=== PATIENT | male | born 1985 | race Caucasian/White ===

== ENCOUNTER 2018-11-11 11:13 | Emergency (ER) | payer OTHER, MEDICAID, SELFPAY ==
[2018-11-11 11:19] VITALS: BP 154/104; PULSE 89; RESP 16; TEMP 36.7; O2SAT 100; BMI 25.4
--- NOTE | 2018-11-11 11:34 | DI.RAD.S_ITS ---
PROCEDURE: XR FINGER RT MIN 2V INDICATIONS: finger jammed in engine, pain with ROM TECHNIQUE: AP hand, 2 views of the 5th finger(s) acquired. COMPARISON: None. FINDINGS: Bones: No fractures or dislocations. There is mild flexion deformity of the fifth finger at proximal interphalangeal joint. No suspicious bony lesions. Soft tissues: No suspicious soft tissue calcifications. IMPRESSION: No fracture dislocation. Flexion deformity of the fifth finger, which could be related to ligamentous injury. Dictated by: Franc Castañeda M.D. on 11/11/2018 at 11:52 Approved by: Franc Castañeda M.D. on 11/11/2018 at 11:54
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
[2018-11-11] MEDS: KETOROLAC 60 MG/2 ML VIAL IM (12:30)
[2018-11-11] MEDS: ACETAMINOPHEN 325 MG TABLET 650 MG PO (12:31)
[2018-11-11] MEDS: BACITRACIN OINT 0.9 GM PCKT 1 APPLIC TOP (13:37)
[2018-11-11 13:38] VITALS: BP 130/87; PULSE 63; RESP 14; O2SAT 100
== END 2018-11-11 13:40 | disposition home or self-care (01) ==
PROVIDERS: Emergency Provider Internal Medicine; PCP Nurse Practitioner Family
DX: T23.401A Corrosion of unspecified degree of right hand, unspecified site, initial encounter (principal); T21.41XA Corrosion of unspecified degree of chest wall, initial encounter; X12.XXXA Contact with other hot fluids, initial encounter
CPT/HCPCS: 29130; 73140; 96372; 99282; 99283; J1885

== ENCOUNTER 2019-06-29 08:07 | Emergency (ER) | payer OTHER, MEDICAID, SELFPAY ==
[2019-06-29 08:18] VITALS: BP 136/73; PULSE 73; RESP 12; TEMP 36.9; O2SAT 98
--- NOTE | 2019-06-29 08:28 | PC.NURSE ---
Seen in [place] in January and almost went to surgery for appy. Surgeon then concluded it was not his appendix. Has been having ongoing lower abd pain since January.
[2019-06-29 08:40] LABS: Add Manual Diff / Slide Review NO; Basophils Absolute Auto 0 /uL (0-100); Basophils Percent Auto 0.5 % (0-2); Eosinophils Absolute Auto 0 /uL (0-450); Eosinophils Percent Auto 0.4 % (2-4); Hematocrit 46.4 % (41-53); Hemoglobin 16.5 g/dL (13.5-17.5); Lymphocytes Absolute Auto 1100 /uL (1100-4500); Mean Corpuscular HGB Conc 35.7 % (30-36); Mean Corpuscular Hemoglobin 32.6 PG (26-34); Mean Corpuscular Volume 91.3 fL (80-100); Monocytes Absolute Auto 400 /uL (0-900); Monocytes Percent Auto 7.2 % (3-14); Neutrophils Absolute Auto 3500 /uL (1500-7000); Neutrophils Percent Auto 69.9 % (50-75); Platelet Count 230 X10^3/uL (150-400); Red Blood Cell Count 5.08 X10^6/uL (4.5-5.9); Red Cell Distribution Width 13.3 % (11.6-14.8); White Blood Cell Count 5.1 X10^3/uL (4.5-11.0)
--- NOTE | 2019-06-29 08:45 | ED.ABDPAIN ---
HPI - Abdominal Pain General Chief Complaint: Abdominal Pain Stated Complaint: Severe lower left stomach pain Time Seen by Provider: 06/29/19 08:33 Source: patient Mode of arrival: Ambulatory History of Present Illness HPI narrative: CC: LLQ abdominal Pain HPI: The patient is a 33-year-old male who presents to the emergency department with left lower quadrant abdominal pain. The patient states that he has had abdominal pain chronically since mid January. He has a history of indigestion heartburn and peptic ulcer disease. He has been having indigestion and heartburn. But last night he developed pain in the left upper quadrant and left lower quadrant. He denies a history of diverticulitis. He has been told that he may have a history of Crohn's disease and irritable bowel syndrome. He has alternating periods of constipation with diarrhea. He has had no melena or hematochezia. He has been vomiting all night unable to keep anything down. He did have an episode of coffee-ground emesis according to his girlfriend but no vomiting of blood. He complains of pain and discomfort in his epigastrium left upper quadrant but mostly in the left lower quadrant. The pain is a dull achy crampy pain that initially was 7 to 8/10 in intensity and is now 5-6 over 10 in intensity. He has been in rehab for her chronic alcohol list some. He denies that he has been drinking any alcohol. He is trying to stop smoking cigarettes. And periodically his smoke marijuana but does not use methamphetamine or heroin. He has had no surgery on his belly but has had a questionable history of gastritis and peptic ulcer disease. He denies having his appendix or gallbladder removed . He denies a history of diabetes mellitus hypertension but admits to a history of asthma and has had a questionable history of pancreatitis. He denies being tested for Covid, or being exposed to Covid. Related Data Previous Rx's Medication Instructions Recorded cephalexin [Keflex] 500 mg PO QID #28 cap 06/29/19 ondansetron HCl [Zofran] 4 mg PO Q6H PRN #12 tab 06/29/19 pantoprazole 40 mg PO DAILY #20 tab 06/29/19 Allergies Allergy/AdvReac Type Severity Reaction Status Date / Time ibuprofen Allergy Unknown ELEVATED Verified 06/29/19 08:22 HR, SWEATS Review of Systems Review of Systems Narrative: REVIEW OF SYSTEMS: CONSTITUTIONAL: He denies any fever or chills at this time. He had chills and sweats while he was vomiting all night. NEUROLOGICAL: Denies any headache numbness tingling paresthesias in his seizures or paresis. He has had no change in vision EENT: No sore throat dysphagia or sinus congestion. CARDIO-PULMONARY: Denies any chest pain cough shortness of breath or difficulty in breathing GASTROINTESTINAL: Has been unable to keep anything down has been vomiting all night. Has had questionable coffee-ground emesis. He has had intermittent diarrhea diarrhea at the present time. DERMATOLOGICAL: No bruising bleeding or rash. MUSCULOSKELETAL: No back pain muscle aches or joint pain GENITALURINARY: Has a slow urinary stream. No dysuria pyuria hematuria. MENTAL HEALTH: States he is in treatment alcohol rehab. Patient History Medical History Asthma (Chronic) Surgical History No history of previous surgery (Chronic) Social History Smoking Status: Current every day smoker Smoking Status: Current every day smoker alcohol intake frequency: a few times a week Substance Use Type: marijuana Exam Narrative Exam Narrative: PHYSICAL EXAM: CONSTITUTIONAL: Awake, Alert, Oriented, Coherent, Cooperative in NAD. Does not appear toxic or ill. The patient is ambulatory arm walking to the bathroom multiple times holding his abdomen. HEAD: AT/NC EENT: PERRL, FROM of eyes, no discharge, no nystagmus MOUTH: Wearing a mask NECK: Supple, no obvious JVD, Trachea is midline without stridor, no palpable LN. SPINE: Palpationof the cervical, Thoracic, Lumbar or Sacral spine reveals no gross deformity or tenderness. No CVA tenderness. THORAX: No deformity, retractions, chest wall tenderness. LUNGS: Clear, symmetrical breath sounds without respiratory distress. HEART: Normal heart tones, regular rhythm and rate without murmur. ABDOMEN: Soft tender in the epigastrium left upper quadrant and left lower quadrant with mild guarding no rebound no rigidity no palpable organomegaly. LYMPHATIC: no palpable lymph nodes or spleen. EXTREMITIES: No edema, deformity, tenderness or cyanosis. SKIN: No rash, bruising, petechiae or purpura. NEURO: Awake, alert, oriented, conversive, cranial nerves II-XII are symmetrical , moves all 4 extremities and is ambulatory. MENTAL HEALTH: No depression Initial Vital Signs Initial Vital Signs: Vital Signs Temperature 98.5 F 06/29/19 08:18 Pulse Rate 73 06/29/19 08:18 Respiratory Rate 12 06/29/19 08:18 Blood Pressure 136/73 06/29/19 08:18 Pulse Oximetry 98 06/29/19 08:18 Course Course Course Narrative: 1141: The patient's CT scan reveals: 1. Small hiatal hernia. No bowel obstruction. No abnormal bowel wall thickening. No free air. Normal appendix. 2. No renal stone or hydronephrosis. 3. Numerous tiny hypodensities scattered in the upper portion of the liver parenchyma which may may represent hepatic cysts. The patient may have a urinary tract infection. Orders Ordered: Discontinued Medications Sodium Chloride (Normal Saline 0.9%) 1,000 mls @ 2,000 mls/hr IV BOLUS PRN PRN Reason: Fluid replacement Last Infusion: 06/29/19 10:59 Dose: 0 mls/hr Documented by: Admin: 06/29/19 09:26 Dose: 2,000 mls/hr Documented by: DEBRA Morphine Sulfate (Morphine) 4 mg IV NOW ONE Stop: 06/29/19 08:44 Last Admin: 06/29/19 09:25 Dose: 4 mg Documented by: DEBRA Ondansetron HCl (Zofran) 4 mg IV NOW ONE Stop: 06/29/19 08:44 Last Admin: 06/29/19 09:25 Dose: 4 mg Documented by: DEBRA Pantoprazole Sodium (Protonix) 40 mg IV NOW ONE Stop: 06/29/19 08:44 Last Admin: 06/29/19 09:26 Dose: 40 mg Documented by: DEBRA Vital Signs Vital signs: Vital Signs - 8 hr 06/29/19 11:36 Pulse Rate 50 L Respiratory Rate 17 Blood Pressure [Left Arm] 111/68 Pulse Oximetry 99 MDM - Abdominal Pain Medical Records Attestation: I reviewed the patient's medical records. Lab Data Attestation: I reviewed the patient's lab results. Result diagrams: 06/29/19 08:27 06/29/19 08:27 Labs: Lab Results 06/29/19 06/29/19 06/29/19 Range/Units 08:27 08:27 08:27 WBC 5.1 (4.5-11.0) X10^3/uL RBC 5.08 (4.5-5.9) X10^6/uL Hgb 16.5 (13.5-17.5) g/dL Hct 46.4 (41-53) % MCV 91.3 (80-100) fL MCH 32.6 (26-34) PG MCHC 35.7 (30-36) % RDW 13.3 (11.6-14.8) % Plt Count 230 (150-400) X10^3/uL Neut % (Auto) 69.9 (50-75) % Lymph % (Auto) 22.0 L (25-40) % [place] % (Auto) 7.2 (3-14) % Eos % (Auto) 0.4 L (2-4) % Baso % (Auto) 0.5 (0-2) % Neut # (Auto) 3500 (1074-9994) /uL Lymph # (Auto) 1100 (4466-1153) /uL [place] # (Auto) 400 (0-900) /uL Eos # (Auto) 0 (0-450) /uL Baso # (Auto) 0 (0-100) /uL PT 12.5 (10.1-12.7) SECONDS INR 1.1 (0.9-1.3) APTT 47 H (26.4-36.2) SECONDS Sodium 139 (137-145) mmol/L Potassium 4.3 (3.4-5.1) mmol/L Chloride 107 (98-107) mmol/L Carbon Dioxide 22 (22-32) mmol/L BUN 12 (9-20) mg/dL Creatinine 0.79 (0.66-1.25) mg/dL Estimated GFR > 60.0 (>60) mL/min BUN/Creatinine Ratio 15.2 (6-22) Glucose 118 H (70-100) mg/dL Calcium 9.9 (8.4-10.2) mg/dL Total Bilirubin 1.5 H (0.2-1.3) mg/dL AST 33 (17-59) IU/L ALT 21 (<50) IU/L Alkaline Phosphatase 42 (38-126) U/L Total Protein 8.3 H (6.3-8.2) g/dL Albumin 5.1 H (3.5-5.0) g/dL Globulin 3.2 (1.7-4.1) g/dL Albumin/Globulin Ratio 1.6 (1.0-2.8) Lipase 69 (23-300) U/L Urine Color Urine Appearance Urine pH (4.5-8.0) Ur Specific [place] (1.000-1.035) Urine Protein (Negative) Urine Glucose (UA) (Negative) g/dL Urine Ketones (NEGATIVE) Urine Occult Blood (Negative) Urine Nitrate (Negative) Urine Bilirubin (NEGATIVE) Ur Bilirubin Confirm (Negative) Urine Urobilinogen (0.2) E.U./dL Ur Leukocyte Esterase (NEGATIVE) Urine RBC Urine WBC Ur Squamous Epith Cells Ur Transition Epith Cell Ur Renal Epithelial Cell Calcium Oxalate Crystal Uric Acid Crystals Triple Phos Crystals Other Crystals Amorphous Sediment Urine Bacteria Hyaline Casts Granular Casts RBC Casts WBC Casts Other Casts Urine Mucus Urine Trichomonas Urine Yeast Urine Sperm Ur Culture Indicated? Micro UA Comment Ethyl Alcohol ( - 10) mg/dL 06/29/19 06/29/19 06/29/19 Range/Units 08:27 08:27 08:27 WBC (4.5-11.0) X10^3/uL RBC (4.5-5.9) X10^6/uL Hgb (13.5-17.5) g/dL Hct (41-53) % MCV (80-100) fL MCH (26-34) PG MCHC (30-36) % RDW (11.6-14.8) % Plt Count (150-400) X10^3/uL Neut % (Auto) (50-75) % Lymph % (Auto) (25-40) % [place] % (Auto) (3-14) % Eos % (Auto) (2-4) % Baso % (Auto) (0-2) % Neut # (Auto) (3239-2570) /uL Lymph # (Auto) (4791-6097) /uL [place] # (Auto) (0-900) /uL Eos # (Auto) (0-450) /uL Baso # (Auto) (0-100) /uL PT (10.1-12.7) SECONDS INR (0.9-1.3) APTT (26.4-36.2) SECONDS Sodium (137-145) mmol/L Potassium (3.4-5.1) mmol/L Chloride (98-107) mmol/L Carbon Dioxide (22-32) mmol/L BUN (9-20) mg/dL Creatinine (0.66-1.25) mg/dL Estimated GFR (>60) mL/min BUN/Creatinine Ratio (6-22) Glucose (70-100) mg/dL Calcium (8.4-10.2) mg/dL Total Bilirubin (0.2-1.3) mg/dL AST (17-59) IU/L ALT (<50) IU/L Alkaline Phosphatase (38-126) U/L Total Protein (6.3-8.2) g/dL Albumin (3.5-5.0) g/dL Globulin (1.7-4.1) g/dL Albumin/Globulin Ratio (1.0-2.8) Lipase (23-300) U/L Urine Color Yellow Urine Appearance Clear Urine pH 5.5 (4.5-8.0) Ur Specific [place] >=1.030 H (1.000-1.035) Urine Protein 1+ H (Negative) Urine Glucose (UA) Negative (Negative) g/dL Urine Ketones 1+ H (NEGATIVE) Urine Occult Blood Trace-intact (Negative) Urine Nitrate Negative (Negative) Urine Bilirubin 1+ H (NEGATIVE) Ur Bilirubin Confirm Negative (Negative) Urine Urobilinogen 0.2 (0.2) E.U./dL Ur Leukocyte Esterase Trace H (NEGATIVE) Urine RBC Cancelled 0-1/hpf Urine WBC Cancelled 0-1/hpf Ur Squamous Epith Cells Cancelled Ur Transition Epith Cell Cancelled Ur Renal Epithelial Cell Cancelled Calcium Oxalate Crystal Cancelled Uric Acid Crystals Cancelled Triple Phos Crystals Cancelled Other Crystals Cancelled Amorphous Sediment Cancelled Urine Bacteria Cancelled Moderate (10-30) H Hyaline Casts Cancelled Granular Casts Cancelled RBC Casts Cancelled WBC Casts Cancelled Other Casts Cancelled Urine Mucus Cancelled 1+ H Urine Trichomonas Cancelled Urine Yeast Cancelled Urine Sperm Cancelled Ur Culture Indicated? Cancelled Specimen cultured Micro UA Comment Cancelled Ethyl Alcohol < 10 ( - 10) mg/dL Point of care testing: Urine Dip Bedside Urine Glucose Negative Bedside Urine Bilirubin ++ 2 Bedside Urine Ketone +++ 80 Urine Specific [place] 1.030 Bedside Urine Occult Blood +/- Bedside Urine pH 6.0 Bedside Urine Protein + 30 Bedside Urine Urobilinogen +/- 1mg Bedside Urine Nitrite + Positive Bedside Urine Leukocytes +/- 15 Esterase ECG Data Attestation: I personally reviewed and interpreted this ECG as follows: Interpretation: The patient's EKG obtained on June 28 at 08:4 4:30 a.m. reveals a normal sinus rhythm with a ventricular rate of 63. Intervals are normal QTC is 397 milliseconds axis is normal. The patient has tall prominent T-waves without any acute diagnostic ST or T-wave changes. T-waves are all upright as expected. Discharge Plan Departure Patient Disposition: Home Clinical Impression: Abdominal pain, LLQ (left lower quadrant), Retching Urinary tract infection Qualifiers: Urinary tract infection type: acute cystitis Hematuria presence: without hematuria Qualified Code(s): N30.00 - Acute cystitis without hematuria Discharge Date/Time: 06/29/19 12:24 Instructions: DI for Dyspepsia, Nausea and Vomiting-Adult Activity Restrictions/Additional Instructions: 1. Follow-up with your primary care physician and be re-evaluated in 48-72 hours. 2. Take the Keflex 500 mg 4 times a day for the next 7 days. 3. Take Zofran 4 mg every 6 hours as needed for persistent nausea and vomiting. 4. Drink 2-3 L of fluid per day to keep yourself hydrated. Do this for the next 3 days. 5. Advance her diet as tolerated. 6. If you develop persistent uncontrolled abdominal pain with retching feelings of being dizzy lightheaded and fainting you need to return to the emergency department to be re-evaluated. Prescriptions: New cephalexin [Keflex] 500 mg capsule 500 mg PO QID Qty: 28 RF: 0 ondansetron HCl [Zofran] 4 mg tablet 4 mg PO Q6H PRN (Reason: nausea and vomiting) Qty: 12 RF: 0 pantoprazole 40 mg tablet,delayed release (DR/EC) 40 mg PO DAILY Qty: 20 RF: 0 Referrals: Bebe Escobar ARNP [Primary Care Provider] -
[2019-06-29 08:50] LABS: INR 1.1 (0.9-1.3); Prothrombin Time 12.5 SECONDS (10.1-12.7)
[2019-06-29 08:53] LABS: PTT Partial Thromboplastin Tim 47 SECONDS (26.4-36.2)
[2019-06-29 08:57] LABS: Alanine Aminotransferase 21 IU/L (<50); Albumin 5.1 g/dL (3.5-5.0); Albumin Globulin Ratio 1.6 (1.0-2.8); Alkaline Phosphatase 42 U/L (38-126); Aspartate Aminotransferase 33 IU/L (17-59); BUN Creatinine Ratio 15.2 (6-22); Bilirubin Total 1.5 mg/dL (0.2-1.3); Blood Urea Nitrogen 12 mg/dL (9-20); Calcium 9.9 mg/dL (8.4-10.2); Carbon Dioxide 22 mmol/L (22-32); Chloride 107 mmol/L (98-107); Estimated Glomerular Filt Rate > 60.0 mL/min (>60); Globulin 3.2 g/dL (1.7-4.1); Glucose 118 mg/dL (70-100); HEMOLYSIS 37 (0-50); Lipase 69 U/L (23-300); Potassium 4.3 mmol/L (3.4-5.1); Sodium 139 mmol/L (137-145); Total Protein 8.3 g/dL (6.3-8.2)
[2019-06-29 09:14] LABS: Appearance Urine UA CLEAR; Bilirubin Urine UA 1+ (NEGATIVE); Color Urine UA YELLOW; Glucose Urine UA NEGATIVE (Negative); Ketones Urine UA 1+ (NEGATIVE); Leukocyte Esterase Urine UA TRACE (NEGATIVE); Nitrite Urine UA NEGATIVE (Negative); Occult Blood Urine UA TRACE-INTACT (Negative); Protein Urine UA 1+ (Negative); Specific Gravity Urine UA >=1.030 (1.000-1.035); Urobilinogen Urine UA 0.2 E.U./dL (0.2); pH Urine UA 5.5 (4.5-8.0)
[2019-06-29 09:15] LABS: Ethanol (ETOH) < 10 mg/dL
[2019-06-29 09:17] LABS: Ictotest Urine Negative (Negative); RBC Urine 0-1/HPF (0-5/HPF); WBC Urine 0-1/HPF (0-5/HPF)
[2019-06-29 09:18] LABS: Bacteria Urine Moderate (10-30); Culture Indicated Urine Specimen Cultured; Mucus Urine 1+ (Negative)
--- NOTE | 2019-06-29 09:20 | DI.CT.S_ITS ---
PROCEDURE: CT ABDOMEN PELVIS W CON INDICATIONS: no abd. surgery, persistent retching, epigastric, left lower qaud pain TECHNIQUE: After the administration of intravenous contrast, 5 mm thick sections acquired from the diaphragm to the symphysis. 5 mm coronal and sagittal reformats were acquired. For radiation dose reduction, the following was used: automated exposure control, adjustment of mA and/or kV according to patient size. COMPARISON: None. FINDINGS: Image quality: Excellent. ABDOMEN: Lung bases: Lung bases are clear. Heart size is normal. Solid organs: Liver is normal in size. Numerous well-circumscribed hypodensities are seen scattered in the upper portion of left and right hepatic lobes measures up to 9 x 8 mm in size in posterior right hepatic dome and are too small to characterize. Gallbladder is within normal limits. Biliary system is non dilated. Pancreas enhances normally. Spleen is normal in size and enhancement. No adrenal nodules. Kidneys demonstrate normal size and enhancement, without hydronephrosis. Peritoneum and bowel: There is a small hiatal hernia. No bowel structure. No gross abnormal gastric or small bowel wall thickening. No abnormal colonic wall thickening. Appendix is visualized and is within normal limits. No free fluid or free air. Nodes and vessels: No retroperitoneal or mesenteric adenopathy by size criteria. Aorta and inferior vena cava are normal in size. Miscellaneous: No ventral hernias. PELVIS: Genitourinary: Bladder wall thickness is normal. Miscellaneous: No inguinal hernias or adenopathy. Bones: No suspicious bony lesions. No vertebral body compression fractures. IMPRESSION: 1. Small hiatal hernia. No bowel obstruction. No abnormal bowel wall thickening. No free fluid or free air. Normal appendix. 2. No renal stone or hydronephrosis. 3. Numerous tiny hypodensities scattered in upper portion of liver parenchyma which may represent hepatic cysts. Dictated by: Jose Finn M.D. on 06/29/2019 at 9:25 Approved by: Jose Finn M.D. on 06/29/2019 at 9:27
[2019-06-29] MEDS: ONDANSETRON 4 MG/2 ML INJ IV (09:25)
[2019-06-29] MEDS: MORPHINE 4 MG/ML INJ IV (09:25)
[2019-06-29] MEDS: PANTOPRAZOLE 40 MG VIAL IV (09:26)
[2019-06-29] MEDS: SODIUM CHLORIDE 0.9% 1,000 ML 2000 ML IV (09:26)
[2019-06-29 09:29] VITALS: BP 115/67; PULSE 59; RESP 18; O2SAT 98
[2019-06-29 11:36] VITALS: BP 111/68; PULSE 50; RESP 17; O2SAT 99
== END 2019-06-29 12:24 | disposition home or self-care (01) ==
PROVIDERS: Emergency Provider Emergency Medicine; PCP Nurse Practitioner Family
DX: R10.32 Left lower quadrant pain (principal); R11.10 Vomiting, unspecified; N30.00 Acute cystitis without hematuria; R12 Heartburn
CPT/HCPCS: 36415; 74177; 80053; 80320; 81001; 81003; 83690; 85025; 85610; 85730; 87086; 93005; 96361; 96374; 96375; 99284; C9113; J2270; J2405; Q9967

== ENCOUNTER 2020-06-20 20:14 | Emergency (ER) | payer OTHER, MEDICAID, SELFPAY ==
[2020-06-20 20:18] VITALS: BP 132/96; PULSE 81; RESP 20; TEMP 37.1; O2SAT 100
--- NOTE | 2020-06-20 20:23 | ED_ITS ---
HPI - Extremity Injury (Upper) General Chief Complaint: Extremity Injury, Upper Stated Complaint: LEFT ARM INJURY Time Seen by Provider: 06/20/20 20:15 Source: patient Mode of arrival: Ambulatory Limitations: no limitations History of Present Illness HPI narrative: 34-year-old male daily smoker presents with his significant other and a chief complaint of laceration to his left forearm suffered yesterday. He was working on his vehicle at home when the glass of the [employer] shattered and he lacerated his forearm. He states he but a fair amount and developed some tingling in his left pinky and presented to an outside facility where he was evaluated, had x-rays that suggested perhaps some small shards of glass remained, sutures were placed, antibiotics were written but he Related Data Previous Rx's Medication Instructions Recorded cephalexin [Keflex] 500 mg PO QID #28 cap 06/29/19 ondansetron HCl [Zofran] 4 mg PO Q6H PRN #12 tab 06/29/19 pantoprazole 40 mg PO DAILY #20 tab 06/29/19 cephalexin 500 mg PO Q6H 7 Days #28 cap 06/20/20 Allergies Allergy/AdvReac Type Severity Reaction Status Date / Time ibuprofen Allergy Unknown ELEVATED Verified 06/29/19 08:22 HR, SWEATS Review of Systems Constitutional Constitutional: Denies chills, Denies fatigue, Denies fever(s), Denies frequent falls, Denies lethargy and Denies weakness Eyes Eyes: Denies change in vision, Denies eye discharge, Denies irritation and Denies loss of vision ENT Ears, Nose, Mouth, and Throat: Denies change in voice, Denies dizziness, Denies neck pain, Denies sore throat and Denies throat swelling Cardiovascular Cardiovascular: Denies chest pain, Denies irregular heart rhythm, Denies lightheadedness, Denies palpitations, Denies dyspnea, Denies dyspnea on exertion and Denies orthopnea Respiratory Respiratory: Denies cough, Denies dyspnea, Denies dyspnea on exertion and Denies wheezing Gastrointestinal Gastrointestinal: Denies abdominal pain, Denies change in bowel habits, Denies diarrhea, Denies nausea and Denies vomiting Musculoskeletal Musculoskeletal: Denies neck pain and Reports numbness Integumentary/Breasts Skin/Breast: Denies pruritus, Denies erythema, Denies rash and Reports wounds Neurologic Neurologic: Denies behavioral changes, Denies confusion, Denies dizziness, Denies frequent falls, Denies loss of vision, Reports numbness and Denies weakness Psychiatric Psychiatric: Denies anxiety, Denies behavioral changes, Denies confusion, Denies depression, Denies homicidal ideation and Denies suicidal ideation Endocrine Endocrine: Denies fatigue, Denies flushing and Denies palpitations Hematologic/Lymphatic Hematologic/Lymphatic: Denies easy bruising Allergic/Immunologic Allergic/Immunologic: Denies urticaria, Denies throat swelling and Denies wheezing Patient History Medical History Asthma Surgical History No history of previous surgery Social History Smoking Status: Current every day smoker Smoking Status: Current every day smoker alcohol intake frequency: a few times a week Substance Use Type: marijuana Exam Narrative Exam Narrative: GEN: AOx3 and in mild distress EYES: Pupils are equal, round, and reactive to light and accommodation. Extraoccular muscles are intact bilaterally. There is no subconjunctival hemorrhage or exudate. CHEST: Lungs are clear to auscultation bilaterally and free of wheezes, rales, or rhonchi. Heart rate is regular rhythm, there are no murmurs, clicks, rubs, or gallops. There is no chest wall tenderness. ABD: Abdomen is soft and nontender. There is no guarding or rebound. Bowel sounds are normal in all 4 quadrants. There is no mass or organomegaly. EXT: Patient with full painless range of motion of left hand, wrist, elbow. Irregular laceration of ulnar side of forearm with no active bleeding, significant swelling or wound dehiscence. There is some dried blood suggesting it had been oozing a bit. There are no palpable foreign bodies. Sensation, strength and full range of motion are intact in all fingers and wrist. Ulnar pulse is palpable and also visualized with color Doppler on ultrasound at the bedside. Compartments are soft and there is no suspicion of compartment syndrome. SKIN: Warm, pink, and dry. No erythema or rash Initial Vital Signs Initial Vital Signs: Vital Signs Temperature 98.8 F 06/20/20 20:18 Pulse Rate 81 06/20/20 20:18 Respiratory Rate 20 06/20/20 20:18 Blood Pressure 132/96 H 06/20/20 20:18 Pulse Oximetry 100 06/20/20 20:18 Course Orders Ordered: ED Orders 06/20/20 20:31 XR forearm LT 2V Stat Discontinued Medications Hydrocodone Bitart/Acetaminophen (Hydrocodone/Acet 5/325 Prepack) 1 bottle MISC SEEINSTR ONE Stop: 06/20/20 21:09 Last Admin: 06/20/20 21:18 Dose: 1 bottle Documented by: JOSUE Cefazolin Sodium (Cephalexin 250 Mg Prepack) 1 bottle MISC SEEINSTR ONE Stop: 06/20/20 21:09 Last Admin: 06/20/20 21:18 Dose: 1 pack Documented by: JOSUE Vital Signs Vital signs: Vital Signs - 8 hr 06/20/20 20:18 Temperature 98.8 F Pulse Rate 81 Respiratory Rate 20 Blood Pressure 132/96 H Pulse Oximetry 100 [facility] - Extremity Injury (Upper) Imaging Data Extremity x-ray #1: Radiologist's Impression: Semaj Herbert 34 M [address] [id number] ReportSigned Patient: Semaj Herbert EMR#: [id number]: 1985Acct:[id number]/Sex: 34 / MDate of Service: 06/20/20Loc: EDAccession Number: [id number] Procedure: XR forearm LT 2V Ordering Provider: Ronny Kitchen D.O. PROCEDURE: XR FOREARM RT 2V INDICATIONS: deep laceration from glass of broken automobile window TECHNIQUE: 2 views of the forearm were acquired. COMPARISON: None. FINDINGS: Bones: No fractures or dislocations. No suspicious bony lesions. Soft tissues: No suspicious soft tissue calcifications or masses. IMPRESSION: No radiopaque foreign body. Dictated by: Adriana Moreno M.D. on 06/20/2020 at 21:20 Approved by: Adriana Moreno M.D. on 06/20/2020 at 21:21 [facility] Narrative Medical decision making narrative: Patient with deep, complex laceration to forearm requests 2nd opinion. His wound is closing appropriately, there is no evidence of expanding hematoma, significant retained foreign body, neurologic deficit to suggest nerve injury or compromised strength or range of motion of fingers or wrist to suggest tendinous or ligamentous injury. Compartments are soft and exam is not consistent with compartment syndrome though it is considered. Bedside ultrasound with Doppler notes appropriate arterial flow distal to the injury. Extensive reassurance given to the patient. I did consult on-call orthopedics to discuss the case and we sure the opinion that a compressive dressing, antibiotics and follow-up are appropriate. Return precautions have been given and questions answered to his apparent satisfaction. Discharge Plan Departure Patient Disposition: Home Clinical Impression: Laceration of forearm with foreign body Qualifiers: Encounter type: initial encounter Laterality: left Qualified Code(s): S51.822A - Laceration with foreign body of left forearm, initial encounter Instructions: Laceration Repair Activity Restrictions/Additional Instructions: *You have been diagnosed with [laceration to left forearm with small retained foreign body.] *What to do: *Take medications as directed *Follow up with your primary care provider in 2-3 days, call for an appointment. Let them know you were seen in the Emergency Department and that we ask that you be seen in follow up *Return to ER if you should have any new, worsening or concerning symptoms, such as [increasing pain, numbness, tingling, weakness, significant bleeding or other bothersome symptoms] Prescriptions: New cephalexin 500 mg capsule 500 mg PO Q6H 7 Days Qty: 28 RF: 0 No Action cephalexin [Keflex] 500 mg capsule 500 mg PO QID Qty: 28 RF: 0 ondansetron HCl [Zofran] 4 mg tablet 4 mg PO Q6H PRN (Reason: nausea and vomiting) Qty: 12 RF: 0 pantoprazole 40 mg tablet,delayed release (DR/EC) 40 mg PO DAILY Qty: 20 RF: 0 Referrals: Bebe Escobar ARNP [Primary Care Provider] -
--- NOTE | 2020-06-20 20:31 | DI.RAD.S_ITS ---
PROCEDURE: XR FOREARM RT 2V INDICATIONS: deep laceration from glass of broken automobile window TECHNIQUE: 2 views of the forearm were acquired. COMPARISON: None. FINDINGS: Bones: No fractures or dislocations. No suspicious bony lesions. Soft tissues: No suspicious soft tissue calcifications or masses. IMPRESSION: No radiopaque foreign body. Dictated by: Adriana Moreno M.D. on 06/20/2020 at 21:20 Approved by: Adriana Moreno M.D. on 06/20/2020 at 21:21
[2020-06-20] MEDS: HYDROCODONE/ACET 5/325 PREPACK 1 BOTTLE MISC (21:18)
[2020-06-20] MEDS: cephALEXin 250 MG PREPACK 1 BOTTLE MISC (21:18)
== END 2020-06-20 21:25 | disposition home or self-care (01) ==
PROVIDERS: Emergency Provider Emergency Medicine; PCP Nurse Practitioner Family
DX: S51.822A Laceration with foreign body of left forearm, initial encounter (principal); W25.XXXA Contact with sharp glass, initial encounter
CPT/HCPCS: 73090; 99283